=== PATIENT | female | born 2000 | race African-American/Black ===

== ENCOUNTER 2019-07-08 | Emergency (ER) | payer SELFPAY ==
[2019-07-08] MEDS ORDERED: AMOXICILLIN500 MG PO (20:09)
== END 2019-07-08 20:24 | disposition home or self-care (01) | DRG 866 ==
DX: B34.9 Viral infection, unspecified (principal)

== ENCOUNTER 2021-05-13 12:45 | Emergency (ER) | payer OTHER ==
[~2021-05-13] VITALS: Ht 160 cm; Wt 69.4 kg
[~2021-05-13 12:45] MED LIST: AMOXICILLIN500 MG PO
[2021-05-13 13:00] VITALS: BP 119/76
[2021-05-13] MEDS ORDERED: OFLOXACIN0.3 % OU (13:55)
== END 2021-05-13 14:00 | disposition home or self-care (01) | DRG 125 ==
LOC: ED 12:45
DX: H10.9 Unspecified conjunctivitis (principal)